=== PATIENT | female | born 1995 | race African-American/Black ===

== ENCOUNTER → 2020-02-15 | Outpatient (CLI) | payer OTHER ==
[~2020-02-15] MED LIST: DOCU100C16 PO; IBUP80TA PO; OXYC-517 PO; PREN200C PO; PROZ40CA PO
--- NOTE | 2020-02-15 14:46 | REPVR ---
PROCEDURE INFORMATION: Exam: US After First Trimester, Transabdominal Exam date and time: 02/15/2020 2:09 PM Age: 25 years old Clinical indication: Screening exam; Other: Growth and bpp, 36 weeks, tachycardia; ; Additional info: 36 wks w/ tactcardia bmi greater 46 bppgrowt TECHNIQUE: Imaging protocol: Real-time transabdominal obstetrical ultrasound of the maternal pelvis and a second or third trimester with image documentation. COMPARISON: No relevant prior studies available. FINDINGS: Gestation: There is a single intrauterine gestation. heart rate: heart rate is 157 bpm. Presentation: Position is cephalic. Placenta: Placenta is anterior not previa. Amniotic fluid: Amniotic fluid is normal for gestational age. Amniotic fluid index: MORTEZA is 11.1. ANATOMY: Midline falx: Normal. Cerebellum: Normal. Cerebral ventricles: Normal. Cisterna magna: Normal. Septum pellucidum: Normal. Upper lip and nose: Normal. Heart four-chamber view, heart size and position: Not seen due to position and size of the fetus. kidneys: Mild dilatation/prominence of the renal pelves. stomach: Normal. urinary bladder: Normal. Spine: Normal. Umbilical cord insertion site into the abdomen: Normal. Umbilical cord vessel number: Not well seen . Arms and hands: Not well seen due to position. Legs and feet: Not well seen position. BIOMETRY: Gestational age (AUA): Gestational age is 35 weeks 1 day. Estimated due date (AUA): Estimated date of confinement is 03/20/2020. Estimated weight: Estimated weight is 2626 g. Biparietal diameter: Biparietal diameter, 35 weeks 5 days, 58th percentile. Head circumference: Head circumference, 36 weeks 0 days, 64th percentile. Abdominal circumference: Abdominal circumference, 35 weeks 0 days, 58 percentile. Femur length: Femur length, 35 weeks 1 day, 51st percentile. MATERNAL ANATOMY: Uterus: Unremarkable. Cervix: Unremarkable. Right adnexa: Ovary is obscured by overlying bowel gas. Left adnexa: Ovary is obscured by overlying bowel gas. IMPRESSION: Single live intrauterine gestation. Some views in the anatomy were limited due to the size of the fetus. Electronically signed by: Faisal Euceda On 02/15/2020 14:46:26 PM
== END ==
LOC: M RAD 13:35
PROVIDERS: ATTEND Registered Nurse Maternal Newborn
DX: O36.8930 Maternal care for other specified fetal problems, third trimester, not applicable or unspecified (principal); Z3A.36 36 weeks gestation of pregnancy

== ENCOUNTER 2020-03-03 08:57 | Inpatient (IN) | payer OTHER ==
[~2020-03-03] VITALS: Ht 170.2 cm; Wt 135.9 kg
[~2020-03-03 08:57] MED LIST changes: -DOCU100C16 PO; -IBUP80TA PO; -OXYC-517 PO
[2020-03-03 09:17] VITALS: BP 128/68
[2020-03-03] MEDS ORDERED: LACTATED RINGER'S 1000 ML IV STA (11:17)
[2020-03-03] MEDS ORDERED: MORPHINE PRES-FREE INJ 10 MG/10 ML VIAL (J2274) As Ordered ONE (11:26)
[2020-03-03] MEDS ORDERED: OXYTOCIN INJ 10 UNITS/ML VIAL (J2590) As Ordered ONE (11:28)
[2020-03-03] MEDS ORDERED: BICITRA 30ML SOLN UDC PO ONE (11:30)
[2020-03-03] MEDS ORDERED: ceFAZolin SOD 1 GM in D5W MINI-BAG PLUS 50 ML IV ONE (11:30)
[2020-03-03] MEDS ORDERED: ceFAZolin SOD 2 GM in IV 1 EA IV ONE (11:30)
[2020-03-03] MEDS ORDERED: ceFAZolin SOD 3 GM in IV 1 EA IV ONE (11:30)
[2020-03-03 11:41] LABS: HEMATOCRIT 32.7 % (36.0-47.0); HEMOGLOBIN 10.8 g/dl (12.0-15.5); MEAN CORPUSCULAR HEMOGLOBIN 29.8 pg (27.0-33.0); MEAN CORPUSCULAR VOLUME 90.1 fl (80.0-96.0); PLATELET COUNT, AUTOMATED 202 10^3/uL (150-450); RED BLOOD COUNT 3.63 10^6/uL (4.00-5.40); WHITE BLOOD COUNT 8.3 10^3/uL (4.0-10.0)
[2020-03-03] MEDS ORDERED: BUPIVACAINE HCL 0.5% 10ML VIAL SC ONE (11:45)
--- NOTE | 2020-03-03 12:00 | HPEPDOC ---
Obstetrical History & Physical General Date of Admission Mar 03, 2020 at 08:57 History of Present Illness 26yo at 39+1 by LMP c/w 20 wk US presents to L+D for planned RCD. Denied VB, LOF, decreased FM, contractions. Denied n/v/d, cp, sob, bautista, visual changes, abd pain, f/c, vaginal dc, urinary sx. Dating Final EDC by: LMP, 2nd trimester (US) Antepartum Course Height (inches): 67 Pre- weight (lbs.): 287 Admission Weight (lbs.): 299 Change in Weight (lbs.): 12 Past Medical History Past Obstetrical History : Past Obstetrical History: Multigravida (G1 2016 SAB. G2 2017 SAB. G3 2017 SAB. G4 2018 PLTCD breech GHTN. G5 2019 RCD GHTN (child of SIDS)) Past Medical History Medical History morbid obesity, depression, anxiety, oral HSV Surgical History: section (x2), Other (diagnostic laparoscopy) Family History Significant Family History: No pertinent family hx Social History Marital Status: Family situation: Spouse/partner home Psychosocial History: Anxiety, Depression * Smoker: non-smoker Alcohol: Denies Drugs: denies Imunizations Tdap status: current Influenza Status: needs Allergies Uncoded Allergies: TREE NUTS (Allergy, Unknown, THROAT ITCHING AND MOUTH HIVES, 03/01/20) Medications Scheduled Docosahexanoic Acid ( Dha) 200 Mg Capsule, 1 CAP PO DAILY Fluoxetine HCl (Prozac) 40 Mg Capsule, 40 MG PO QAM Physical Examination Physical Examination GENERAL: Alert and oriented times three. BREAST: . ABDOMEN: Gravid and non-tender to touch. FETUS: Is vertex (VTX) by sterile vaginal examination (SVE), fetus is vertex (VTX) by Antonio. HEART RATE: Regular rate and rhythm. LUNGS: Clear to auscultation (CTA). EXTREMITIES: No edema. No clonus. Deep tendon reflexes (DTRs) + . Vital Signs/I&O Vital Signs Date Time Temp Pulse Resp B/P (MAP) Pulse Ox O2 Delivery O2 Flow Rate FiO2 03/03/20 09:17 97.0 93 18 128/68 (88) Room Air Laboratory Data 24H LABS Laboratory Tests 2 9/30/20 20:23: Serology Scanned Report Hepatitis B Testing 03/03/20 10:45: CBC/BMP Urine Culture: No Growth Pertinent Laboratoy Data Blood Type: O+ RBC Antibody Screen: Negative HIV: Negative Hepatitis B: Negative Rapid Plasma Reagin: Nonreactive Rubella: Immune Varicella: Nonreactive Chlamydia/Gonorrhea: Negative Group B Streptococcus: Negative Quad Screen Test: Declined Cystic Fibrosis: Declined Anatomy Ultrasound Placenta Location: Anterior Normal Anatomy: Yes Placenta Previa: No Estimated Weight (grams): 3700 Steroid Therapy Steroid Therapy: No Assessment Heart Rate (FHR): 150 Variability: Moderate Accelerations: Positive Decelerations: None Tocometer Contractions: Yes Frequency: irregular Assessment/Plan Assessment 25yo at 39+1 by LMP and 20wk US presents for RCD. Normal VS. CAT I tracing, reactive. APC 1. history of CDx2 2. history of GHTN x2 3. obesity, pre-preg BMI 41, now BMI 46, 30# gain 4. Rh negative, received rhogam at 28wk 5. varicella non-immune 6. elevated 1h normal 3h gTT 7. depression, situational (child from SIDS 4mo ago), on prozac 8. oral HSV 9. poor dating, no 1T scan, sure LMP is c/w 20wk US Rh neg, GBS neg, placenta anterior, EFW 3700 Plan Admit and orient. [employer] and consent. Diet: NPO Group B Streptococcus (GBS) [negative]. Labs and intravenous (IV) per unit protocol. 3g ancef for pre-op ABX for Kg >120 bicitra for GI PPX lovenox post-op for DVT PPX, also SCDs, early ambulation plan for winters placement in OR and removal when ambulating plan for rhogam VERONICA JOSE DO Mar 03, 2020 12:00
[2020-03-03] MEDS ORDERED: ONDANSETRON 4MG/2ML VIAL As Ordered ONE (13:24)
[2020-03-03] MEDS ORDERED: dexameTHASONE 4 MG/ML 1ML VIAL (J1100 PER 1MG) As Ordered ONE (13:24)
[2020-03-03] MEDS ORDERED: PHENYLephrine HCL 500 MCG/5 ML (100MCG/ML) SYRINGE (J2370) As Ordered ONE (13:25)
[2020-03-03] MEDS ORDERED: KETOROLAC 60MG 2ML VIAL As Ordered ONE (13:25)
[2020-03-03] MEDS ORDERED: fentaNYL 100 MCG/2 ML INJECTION (J3010) IV PRN (15:00)
[2020-03-03] MEDS ORDERED: ONDANSETRON 4MG/2ML VIAL IV PRN (15:00)
[2020-03-03] MEDS ORDERED: oxyCODONE 5MG TAB PO PRN ×2 (15:00→15:45)
[2020-03-03] MEDS ORDERED: OXYTOCIN DRIP 30 UNITS in IV 1 EA IV SCH (15:42)
[2020-03-03] MEDS ORDERED: RHOGAM 300 MCG (1500 IU) INJ (J2790) IM SCH (15:45)
[2020-03-03] MEDS ORDERED: ACETAMINOPHEN TAB 650MG DOSE (2X325MG) PO PRN (15:45)
[2020-03-03] MEDS ORDERED: ACETAMINOPHEN 500 MG TAB PO PRN (15:45)
[2020-03-03 16:00] VITALS: BP 112/63
[2020-03-03 18:00] VITALS: BP 125/58
--- NOTE | 2020-03-03 18:35 | DNPDOC ---
[facility] Delivery Note Delivery Note DATE OF DELIVERY: 03/03/20 PREDELIVERY DIAGNOSIS: 39+1/7 weeks' gestation, history of delivery, morbid obesity POST DELIVERY DIAGNOSIS: same as above PROCEDURE: repeat delivery CLAIMS SUPPORT SPECIALIST: Dr. Tyler Jose DO ANESTHESIA: spinal ESTIMATED BLOOD LOSS: 700 mL. FINDINGS: 3020g infant, Score 8/9, nuchal cord times 0 DELIVERY SUMMARY: Patient is a 26yo at 39+1 by LMP and 20wk US who presents for RCD. After proper consent was obtained, the patient was taken to the operating room where epidural anesthesia was performed. The patient was prepped and draped in the usual sterile fashion in dorsosupine position with a leftward tilt. A final time-out was performed and after testing the adequacy of anesthesia, a Pfannenstiel skin incision was then made with a scalpel over the existing scar and carried to the underlying fascia. The fascia was incised in the midline with a scalpel and then was carried laterally with curved Onofre scissors. The superior aspect of the fascial incision was then grasped with Kenneth clamps x2, elevated and the underlying rectus muscle was dissected off the fascia bluntly, using a scalpel at the midline. The rectus muscles were then in the midline and the peritoneum was identified and entered bluntly. Care was taken to identify and lyse the adhesions to the anterior surface of the uterus. The peritoneal incision was then extended superiorly and inferiorly with good visualization of the bladder. The bladder blade was inserted. The lower uterine segment was identified and incised in a curvilinear fashion with a scalpel and then extended in a cranio-caudal fashion bluntly. The bladder blade was removed and the infants head was delivered atraumatically followed by shoulders and corpus without difficulty. The infant had good initial tone and was spontaneously moving all extremities and crying. The cord was doubly clamped and cut and the infant was handed off to awaiting pediatricians. The placenta was removed intact. The uterus was exteriorized and cleared of all clots and debris using a dry lap. The incision was then repaired with 0 Monocryl suture in a running locking fashion and a horizontal imbricating layer was performed for hemostasis with 0 Monocryl suture. Excellent hemostasis was obtained. The posterior cul-de-sac was cleared of all clots with a moist lap. The uterus was then returned to the pelvis and the hysterotomy was visualized off tension and still found to be hemostatic. The gutters were cleared of all clots with a moist lap bilaterally. The hysterotomy was again inspected and noted to be hemostatic. The rectus muscles were also inspected and were hemostatic with the use of bovie cautery. The fascia was reapproximated with 0- PDS in a running fashion. The subcutaneous tissue was reapproximated with 2-0 vicryl in a running fashion. The skin was closed with a 4-0 monocryl and secured with steri strips and a provena wound vac dressing. The patient tolerated the procedure well. Sponge, lap, and needle counts were all reported as correct x2. Vaginal sweep was performed with few clots and good uterine tone with Pitocin. The patient was returned to L&D in stable condition for continued monitoring. TYLER JOSE DO Mar 03, 2020 18:35
[2020-03-03] MEDS: DOCUSATE SODIUM 100 MG CAP PO SCH (21:08)
[2020-03-03] MEDS: ENOXAPARIN 30MG/0.3ML SYRINGE (J1650 PER 10MG) SC SCH (21:09)
[2020-03-03 22:00] VITALS: BP 135/71
[2020-03-04 02:00] VITALS: BP 110/54
[2020-03-04 06:00] VITALS: BP 119/63
--- NOTE | 2020-03-04 06:32 | IPNPDOC ---
Progress Note Date of Service: Mar 04, 2020 Day#: 1 Progress Note SUBJECT: 25yo POD1 s/p uncomplicated RCD. She has been ambulating, voiding spontaneously without issue and tolerating regular diet. Breast feeding without issue. Reports lochia is less than a normal period. Patient is ambulating well. Denies any pain. Voiding and stooling without difficulty. APC 1. history of CDx3 2. history of GHTN x2 3. obesity, pre-preg BMI 41, now BMI 46, 30# gain 4. Rh negative, received rhogam at 28wk 5. varicella non-immune 7. depression, situational (child from SIDS 4mo ago), on prozac 8. oral HSV OBJECTIVE: VITAL SIGNS: Within normal limits, afebrile. Alert and oriented times three. No increased WOB non-tachy Abdomen: Fundus firm at U-2. Soft, NTTP. Minimal lochia. ASSESSMENT: 25yo POD1 s/p uncomplicated RCD. Vitals within normal limits, afebrile, hemodynamically stable with no evidence of infection. PLAN: 1. Discharge to home today. 2. tylenol, motrin, and oxyIR for pain 3. Encourage breast feeding and ambulation. 4. desires IUD at 6 weeks 5. Routine PP visit in 6 weeks in clinic. 6. Discussed return precautions at length. 7. Rhogam before discharge VS, I&O, 24H, Fishbone Vital Signs/I&O Vital Signs Date Time Temp Pulse Resp B/P (MAP) Pulse Ox O2 Delivery O2 Flow Rate FiO2 03/04/20 02:00 96.5 86 18 110/54 (72) 96 Room Air I&O- Last 24 Hours up to 6 AM 03/04/20 06:00 Intake Total 240 ml Output Total 1700 ml Balance -1460 ml Laboratory Data 24H LABS Laboratory Tests 2 03/03/20 10:45: Nucleated Red Blood Cells % (auto) 0.0, Syphilis Serology NONREACTIVE CBC/BMP Laboratory Tests 03/03/20 10:45 VERONICA JOSE DO Mar 04, 2020 06:32
[2020-03-04] MEDS: DOCUSATE SODIUM 100 MG CAP PO SCH ×2 (08:28→21:17)
[2020-03-04] MEDS ORDERED: INFLUENZA QUADRIVALENT PF VACCINE 0.5ML SYRINGE IM ONE (09:00)
[2020-03-04] MEDS: ENOXAPARIN 30MG/0.3ML SYRINGE (J1650 PER 10MG) SC SCH ×2 (09:42→21:17)
[2020-03-04] MEDS: PRENATAL VITAMINS CHEWABLE TABLET PO SCH (09:43)
[2020-03-04 10:00] VITALS: BP 116/63
[2020-03-04 14:00] VITALS: BP 118/61
[2020-03-04] MEDS: oxyCODONE 5MG TAB PO PRN (17:50)
[2020-03-04 18:00] VITALS: BP 119/54
[2020-03-04] MEDS: IBUPROFEN 800 MG TAB PO SCH (21:17)
[2020-03-04 22:00] VITALS: BP 120/73
[2020-03-05 02:00] VITALS: BP 130/73
[2020-03-05] MEDS: oxyCODONE 5MG TAB PO PRN ×2 (04:36→12:11)
[2020-03-05] MEDS: IBUPROFEN 800 MG TAB PO SCH (05:28)
[2020-03-05 06:00] VITALS: BP 132/69
[2020-03-05] MEDS ORDERED: IBUP80TA PO (07:01)
[2020-03-05] MEDS ORDERED: OXYC-517 PO (07:01)
[2020-03-05] MEDS ORDERED: DOCU100C16 PO (07:01)
[2020-03-05] MEDS: ENOXAPARIN 30MG/0.3ML SYRINGE (J1650 PER 10MG) SC SCH (10:24)
[2020-03-05] MEDS: PRENATAL VITAMINS CHEWABLE TABLET PO SCH (10:24)
[2020-03-05] MEDS: DOCUSATE SODIUM 100 MG CAP PO SCH (10:24)
--- NOTE | 2020-03-08 13:16 | DS ---
DATE OF ADMISSION: 03/03/2020 DATE OF DISCHARGE: 03/05/2020 DATE OF SERVICE: 03/05/2020 This lady is a 25-year-old, 7, para 2 admitted for elective repeat section, delivered a live male , 6 pounds 11 ounces, 3020 grams, scores of 8 and 9 at 1 and 5 minutes, respectively. On her second day, we discussed phlebitis, cystitis, mastitis, endometritis, cellulitis, diet, exercise, pain management, perineal, breast, and wound care. She was on Lovenox as a prophylaxis because of an elevated body mass index (BMI). She also had a wound vacuum assisted closure (VAC) placed by the surgeon. The rest of the examination is unremarkable. Normocephalic, atraumatic. Neck full range of motion. Pupils equal and reactive to light. Distal pulses are symmetric. No evidence of deep venous thrombosis (DVT), pulmonary embolus (PE), or superficial phlebitis. Chest is clear bilaterally to bases. No wheezes or rhonchi. No costovertebral angle (CVA) tenderness. Abdomen is soft, four quadrant bowel sounds are noted. Incision is clean and dry, wound VAC is in place. No rashes, lesions, or pruritus. No arthralgia, myalgia, no complaint of joint pain. No complaint of cough, wheeze, shortness of breath, or dyspnea on exertion. No nausea, vomiting, diarrhea, or constipation. No urgency or frequency. Her vital signs today on discharge are: Blood pressure 132/69, respirations 20, pulse 94, temperature is 98.5. Her admitting hemoglobin was 10.8, hematocrit 32.7, and platelets were 202. In summary, we have a 39+ week of gestation admitted for repeat section, delivered a live male infant. All questions were answered, 20 minute discussion. She has picked up her medications at [place]. We will make a 2 week incision check and a [address] [facility] [place]
== END 2020-03-05 12:30 | disposition home or self-care (01) | DRG 772 ==
LOC: M LDI 08:57 → M OBS 15:01 → EDUNIT# 03-08 07:30
PROVIDERS: ADMIT Obstetrics & Gynecology; ATTEND Obstetrics & Gynecology
PROC: 10D00Z1 Extraction of Products of Conception, Low, Open Approach (ICD-10-PCS; principal; 2020-03-03 09:30)
DX: O34.211 Maternal care for low transverse scar from previous cesarean delivery (principal); Z68.42 Body mass index [BMI] 45.0-49.9, adult; O98.52 Other viral diseases complicating childbirth; Z37.0 Single live birth; Z3A.39 39 weeks gestation of pregnancy; E66.01 Morbid (severe) obesity due to excess calories; O99.214 Obesity complicating childbirth; F32.9 Major depressive disorder, single episode, unspecified; O99.344 Other mental disorders complicating childbirth; B00.9 Herpesviral infection, unspecified